=== PATIENT | male | born 1985 | race Caucasian/White ===

== ENCOUNTER 2017-08-31 11:36 | Emergency (ER) | payer SELFPAY ==
[2017-08-31] MEDS ORDERED: Ibuprofen TAB* 400 MG PO ONE (11:58)
[2017-08-31] MEDS ORDERED: Ibuprofen TAB* 800 MG PO ONE ×2 (12:00→12:03)
--- NOTE | 2017-08-31 12:03 | ED ---
Lower Extremity - HPI Summary HPI Summary: Patient is a 32-year-old male who presents emergency department for a left ankle and foot injury that occurred last evening. Patient states he was walking up steps to his house and tripped and rolled his left ankle. Patient states he heard a "pop." Today he is having difficulty ambulating and presented to the emergency department. Symptoms are mild in severity. Walking makes symptoms worse. Rest makes symptoms better. Denies numbness, tingling or weakness. - History of Current Complaint Chief Complaint: EDExtremityLower Stated Complaint: LT FOOT INJURY Time Seen by Provider: 08/31/17 11:53 Hx Obtained From: Patient Pain Intensity: 10 - Allergies/Home Medications Allergies/Adverse Reactions: Allergies Allergy/AdvReac Type Severity Reaction Status Date / Time No Known Allergies Allergy Verified 08/31/17 11:43 Home Medications: Home Medications NK [No Home Medications Reported] 08/31/17 [History Confirmed 08/31/17] PMH/Surg Hx/FS Hx/Imm Hx Previously Healthy: Yes Infectious Disease History: No Infectious Disease History: Denies: Traveled Outside the [place] in Last 30 Days - Social History Occupation: Employed Full-time Lives: With Family Alcohol Use: None Substance Use Type: Reports: None Smoking Status (MU): Never Smoked Tobacco Review of Systems Positive: Other - Left ankle and foot pain and swelling Negative: Weakness, Paresthesia, Numbness All Other Systems Reviewed And Are Negative: Yes Physical Exam Triage Information Reviewed: Yes Vital Signs On Initial Exam: Initial Vitals Temp Pulse Resp BP Pulse Ox 97 F 98 16 127/74 97 08/31/17 11:42 08/31/17 11:42 08/31/17 11:42 08/31/17 11:42 08/31/17 11:42 Vital Signs Reviewed: Yes Appearance: Positive: Well-Appearing - Pt. lying in bed in NAD. Numerous facial tattoos. Skin: Positive: Warm, Dry Head/Face: Positive: Normal Head/Face Inspection Eyes: Positive: Normal Neck: Positive: Supple Musculoskeletal: Positive: Other - Mild edema with pain noted to the lateral malleolus. Two very small areas with superifical abrasion laterally. Diffuse lateral foot pain. Good palpable pedal pulse. Achilles tendon is intact. No proximal tib/fib or knee pain on palpation. Neurological: Positive: Normal, CN Intact II-III, Reflexes Intact Procedures - Splinting Left Lower Extremity Pre-Made Type: aircast Pre-Proc Neuro Vasc Exam: normal Post-Proc Neuro Vasc Exam: normal Diagnostics - Vital Signs Vital Signs Temp Pulse Resp BP Pulse Ox 08/31/17 11:42 97 F 98 16 127/74 97 - Laboratory Lab Statement: Any lab studies that have been ordered have been reviewed, and results considered in the medical decision making process. Lower Extremity Course/Dx - Course Course Of Treatment: Patient presenting for isolated ankle injury. X-rays of foot and ankle are negative for acute findings, reading per radiology. Results were discussed with patient. Ankle was splinted for comfort. Advised ice and elevation. Tylenol or Motrin for pain as directed. He was given information for orthopedic clinic for follow-up if symptoms persist. Work excuse given. Patient understands and agrees with plan. - Diagnoses Differential Diagnosis/HQI/PQRI: Positive: Contusion, Fracture (Closed), Sprain , Strain Provider Diagnoses: Ankle sprain Discharge - Sign-Out/Discharge Documenting (check all that apply): Discharge/Admit/Transfer - Discharge Plan Condition: Good Disposition: HOME Patient Education Materials: Ankle Sprain (ED) Forms: *Work Release Referrals: [facility] [Outside] Hayden Abraham MD [Medical Doctor] - No Primary Care Phys,NOPCP [Primary Care Provider] - Additional Instructions: Schedule a follow up appointment with orthopedics if pain and swelling continue Ice and elevate Splint for comfort Tylenol or Motrin for pain as directed Return to ER if symptoms change or worsen - Billing Disposition and Condition Condition: GOOD Disposition: Home
--- NOTE | 2017-08-31 12:39 | RAD ---
HISTORY: fall, lateral pain COMPARISONS: None VIEWS: 3, Frontal, lateral, and oblique views of the left foot FINDINGS: BONE DENSITY: Normal. BONES: There is no displaced fracture. JOINTS: There is no arthropathy. ALIGNMENT: There is no dislocation. SOFT TISSUES: Unremarkable. OTHER FINDINGS: None. IMPRESSION: NO ACUTE OSSEOUS INJURY. IF SYMPTOMS PERSIST, RECOMMEND REPEAT IMAGING.
--- NOTE | 2017-08-31 12:40 | RAD ---
HISTORY: fall, lateral pain COMPARISONS: None VIEWS: 3, Frontal, lateral, and oblique views of the left ankle FINDINGS: BONE DENSITY: Normal. BONES: There is no displaced fracture. There is a small plantar calcaneal enthesophyte. JOINTS: There is no arthropathy. ALIGNMENT: There is no dislocation. SOFT TISSUES: There is circumferential soft tissue swelling. OTHER FINDINGS: None. IMPRESSION: SOFT TISSUE SWELLING. NO ACUTE OSSEOUS INJURY. IF SYMPTOMS PERSIST, RECOMMEND REPEAT IMAGING.
[2017-08-31 12:59] VITALS: BP 124/72
== END 2017-08-31 12:58 | disposition home or self-care (01) ==
LOC: ED 11:36
DX: S93.402A Sprain of unspecified ligament of left ankle, initial encounter (principal); W18.40XA Slipping, tripping and stumbling without falling, unspecified, initial encounter; Y93.01 Activity, walking, marching and hiking; Y92.008 Other place in unspecified non-institutional (private) residence as the place of occurrence of the external cause
CPT/HCPCS: 99282; A9270-GY